=== PATIENT | male | born 1980 | race Caucasian/White ===

== ENCOUNTER 2020-10-18 04:23 | Emergency (ER) | payer OTHER ==
[~2020-10-18] VITALS: Ht 170.2 cm; Wt 81.6 kg
[2020-10-18 04:25] VITALS: BP 155/96
--- NOTE | 2020-10-18 04:36 | NUR ---
CALLED LAB FOR DAYSI
--- NOTE | 2020-10-18 04:36 | NUR ---
CALLED RT FOR BREATHING TREATMENT.
[2020-10-18] MEDS ORDERED: IPRATROPIUM NEB FS 0.5 MG/2.5 ML AMPUL.NEB ONE (04:38)
[2020-10-18] MEDS ORDERED: ALBUTEROL FS 2.5 MG/3 ML VIAL.NEB ONE (04:38)
[2020-10-18] MEDS ORDERED: predniSONE 20 MG TABLET ONE (04:41)
[2020-10-18] MEDS ORDERED: EPINEPHRINE (1:1000) 1 MG/ML AMPUL ONE (04:41)
[2020-10-18] MEDS ORDERED: EPINEPHRINE (1:1000) 1 MG/ML AMPUL SUBCUT ONE (05:00)
[2020-10-18] MEDS ORDERED: IPRATROPIUM NEB FS 0.5 MG/2.5 ML AMPUL.NEB NEB ONE (05:00)
[2020-10-18] MEDS ORDERED: ALBUTEROL FS 2.5 MG/3 ML VIAL.NEB CONTNEB ONE (05:00)
[2020-10-18] MEDS ORDERED: predniSONE 20 MG TABLET PO ONE (05:00)
[2020-10-18] MEDS ORDERED: ALBU8.5H8 INH (05:48)
[2020-10-18] MEDS ORDERED: CEPH500C2 PO (05:48)
--- NOTE | 2020-10-18 05:53 | NUR ---
Patient discharged to home in stable condition. Written and verbal after care instructions given. Patient verbalizes understanding of instruction.Pt ambulatory with a steady gait
== END 2020-10-18 06:00 | disposition home or self-care (01) ==
LOC: ER 05:03
DX: J45.901 Unspecified asthma with (acute) exacerbation (principal); J20.9 Acute bronchitis, unspecified; Z20.822 Contact with and (suspected) exposure to COVID-19
CPT/HCPCS: 71045; 87426; 94640; 99284; C9803; J0171